=== PATIENT | female | born 1955 | race Caucasian/White ===

== ENCOUNTER 2019-05-21 21:33 | Emergency (ER) | payer MEDICARE, MEDICAID ==
[~2019-05-21] VITALS: Ht 162.6 cm; Wt 99.3 kg
[~2019-05-21 21:33] MED LIST: ARIP15TA3 PO; ATOR40TA PO; BUPR-96 PO; DULO60CA64 PO; HYDR200T4 PO; METF-440 PO; OXYB5TAB11 PO; SULF500T8 PO; TRAZ-214 PO
--- NOTE | 2019-05-21 21:45 | NUR ---
BIBA W/ C/O RLQ ABD PAIN SINCE 1499. +N/V. LBM: TODAY. NORMAL BM. - DIARRHEA. VSS
--- NOTE | 2019-05-21 21:51 | NUR ---
PIV 18G STARTED ON LAC. BLOOD DRAWN AND SENT TO THE LAB. PT UNABLE TO PROVIDE URINE SAMPLE AT THIS TIME.
[2019-05-21 21:52] LABS: BASOPHILS # (AUTO) 0.1 /CMM (0.0-0.2); EOSINOPHILS % (AUTO) 3.1 % (0.0-6.0); HEMATOCRIT 30 % (33-45); HEMOGLOBIN 9.7 g/dL (11.5-14.8); LYMPHOCYTES # (AUTO) 1.8 /CMM (0.8-4.8); LYMPHOCYTES % (AUTO) 30.9 % (20.0-44.0); MEAN CORPUSCULAR HGB CONC 32 g/dl (31.0-36.0); MEAN CORPUSCULAR VOLUME 88 fL (82-100); MONOCYTES # (AUTO) 0.5 /CMM (0.1-1.30); MONOCYTES % (AUTO) 9.2 % (2.0-12.0); NEUTROPHILS # (AUTO) 3.2 /CMM (1.8-8.9); NEUTROPHILS % (AUTO) 55.8 % (43.0-81.0); PLATELET COUNT (AUTO) 224 /CMM (150-450); WHITE BLOOD COUNT (AUTO) 5.7 K/uL (4.3-11.0)
[2019-05-21 22:11] LABS: POTASSIUM 4.1 mmol/L (3.5-5.1)
[2019-05-21 22:17] LABS: ALBUMIN 3.6 g/dL (3.4-5.0); BILIRUBIN,DIRECT 0.1 mg/dL (0.0-0.2); BILIRUBIN,TOTAL 0.3 mg/dL (0.2-1.0); TOTAL PROTEIN, SERUM 6.4 g/dL (6.4-8.2)
--- NOTE | 2019-05-21 22:51 | NUR ---
PICKED UP FOR CT SCAN
[2019-05-21] MEDS ORDERED: KETOROLAC TROMETHAMINE INJ 30 MG/ML VIAL ONE (22:53)
[2019-05-21] MEDS ORDERED: KETOROLAC TROMETHAMINE INJ 30 MG/ML VIAL IV ONE (23:00)
[2019-05-22 00:01] LABS: APPEARANCE,URINE Clear (CLEAR); BILIRUBIN,URINE SMALL (NEGATIVE); BLOOD, URINE Negative Ery/uL (NEGATIVE); COLOR,URINE Yellow (YELLOW); KETONES,URINE Trace (NEGATIVE); LEUKOCYTE ESTERASE ,URINE Negative (NEGATIVE); NITRITE, URINE Negative (NEGATIVE); PH,URINE 5.5 (5.0-8.0); PROTEIN,URINE Negative (NEGATIVE); UGLUCOSE Negative (NEGATIVE); UROBILINOGEN,URINE 0.2 EU/dL (0.2)
[2019-05-22 00:25] LABS: BACTERIA,URINE Few /HPF (None Seen); SQUAMOUS EPITHELIAL CELL,UR Few /HPF (None Seen)
--- NOTE | 2019-05-22 00:38 | NUR ---
CALLED [facility] FOR TRANSPORT. 30-40 MINUTE ETA 0115. TRIP #[id number].
--- NOTE | 2019-05-22 01:01 | NUR ---
CALLED [facility] AND SPOKE TO JUDITH REGARDING PT'S D/C STATUS
--- NOTE | 2019-05-22 01:33 | NUR ---
pt was picked up by radha via gurney in stable condition and transferred to four season AR, IV removed. Catheter intact and site benign. Pressure and 4x4 applied to site. No bleeding noted.Patient discharged to [place] in stable condition. Rx and Written and verbal after care instructions given. Patient verbalizes understanding of instruction. report given to hogshead mat assembler
[2019-05-22 01:44] VITALS: BP 141/75
== END 2019-05-22 01:33 | disposition home or self-care (01) ==
LOC: ER 21:35
DX: R10.31 Right lower quadrant pain (principal); M32.9 Systemic lupus erythematosus, unspecified; M79.7 Fibromyalgia; M06.88 Other specified rheumatoid arthritis, vertebrae; E78.5 Hyperlipidemia, unspecified; E11.9 Type 2 diabetes mellitus without complications; G89.29 Other chronic pain; M54.5 Low back pain; I10 Essential (primary) hypertension; F41.9 Anxiety disorder, unspecified; F32.9 Major depressive disorder, single episode, unspecified; E66.9 Obesity, unspecified; Z98.890 Other specified postprocedural states; Z68.37 Body mass index [BMI] 37.0-37.9, adult
CPT/HCPCS: 36415; 51702; 74176; 80048; 80076; 81001; 83690; 85025; 96374; 99284; J1885; 81000-TC

== ENCOUNTER 2019-09-16 20:33 | Emergency (ER) | payer MEDICARE, OTHER, MEDICAID ==
[~2019-09-16] VITALS: Ht 162.6 cm; Wt 99.8 kg
[~2019-09-16 20:33] MED LIST changes: -OXYB5TAB11 PO; +OXYB5TAB16 PO; -TRAZ-214 PO; +TRAZ-257 PO
[2019-09-16 20:51] LABS: BASOPHILS % (AUTO) 0.7 % (0.0-2.0); EOSINOPHILS % (AUTO) 3.6 % (0.0-6.0); HEMATOCRIT 34 % (33-45); HEMOGLOBIN 11.1 g/dL (11.5-14.8); LYMPHOCYTES # (AUTO) 1.7 /CMM (0.8-4.8); LYMPHOCYTES % (AUTO) 29.7 % (20.0-44.0); MEAN CORPUSCULAR HGB CONC 33 g/dl (31.0-36.0); MEAN CORPUSCULAR VOLUME 95 fL (82-100); MONOCYTES # (AUTO) 0.6 /CMM (0.1-1.30); MONOCYTES % (AUTO) 10.1 % (2.0-12.0); NEUTROPHILS # (AUTO) 3.1 /CMM (1.8-8.9); NEUTROPHILS % (AUTO) 55.9 % (43.0-81.0); PLATELET COUNT (AUTO) 186 /CMM (150-450); RED BLOOD CELL COUNT(AUTO) 3.56 MIL/uL (4.0-5.2); WHITE BLOOD COUNT (AUTO) 5.6 K/uL (4.3-11.0)
[2019-09-16 21:00] LABS: CALCIUM, SERUM 9.4 mg/dL (8.5-10.1); CREATININE 1.1 mg/dL (0.6-1.3); POTASSIUM 4.1 mmol/L (3.5-5.1)
--- NOTE | 2019-09-16 21:00 | NUR ---
URINE SAMPLE COLLECTED AND SENT TO LAB.
[2019-09-16 21:30] LABS: APPEARANCE,URINE Slightly Cloudy (CLEAR); BILIRUBIN,URINE SMALL (NEGATIVE); BLOOD, URINE Negative Ery/uL (NEGATIVE); COLOR,URINE Dark (YELLOW); KETONES,URINE Trace (NEGATIVE); LEUKOCYTE ESTERASE ,URINE Negative (NEGATIVE); NITRITE, URINE Negative (NEGATIVE); PROTEIN,URINE Negative (NEGATIVE); UGLUCOSE Negative (NEGATIVE); UROBILINOGEN,URINE 0.2 EU/dL (0.2)
[2019-09-16 21:40] LABS: BACTERIA,URINE Many /HPF (None Seen); MUCUS,URINE Many /LPF (None Seen); RBC,URINE 0-2 /HPF (0-2); SQUAMOUS EPITHELIAL CELL,UR Few /HPF (None Seen); WBC,URINE 0-2 /HPF (0-3)
--- NOTE | 2019-09-16 21:44 | NUR ---
KASIE PANDEY ETA [id number] TRIP#[id number]
--- NOTE | 2019-09-16 23:10 | NUR ---
PT NOTED W/ A HIGH HR OF 115-120 UPON DISCHARGE WHILE THE TRANSPORTATION AT THE BED SIDE TO PICK HER UP. DR MONGE MADE AWARE W/ A NORDER FOR AN STAT EKG AND HOLD THE D/C.
--- NOTE | 2019-09-16 23:10 | NUR ---
KASIE PLACED ON WILL CALL
--- NOTE | 2019-09-16 23:20 | NUR ---
[facility] ETA 0106
--- NOTE | 2019-09-17 00:59 | NUR ---
PT IS SITTING IN BED COMFORTABLY. NO DISTRESS. HAVING SOME JUICE AND SNACKS. F/C IN PLACE DRAINING CLAR YELLOW URINE. VSS. HR: 89. WILL CONT TO MONITOR,
--- NOTE | 2019-09-17 01:20 | NUR ---
Patient discharged to home in stable condition. Written and verbal after care instructions given. Patient verbalizes understanding of instruction. pt was picked up by [facility] in stable condition. all belongings picked up.
[2019-09-17 01:32] VITALS: BP 109/73
== END 2019-09-17 01:33 | disposition home or self-care (01) ==
LOC: ER 20:40
DX: R33.9 Retention of urine, unspecified (principal); R00.0 Tachycardia, unspecified; E11.9 Type 2 diabetes mellitus without complications; M54.9 Dorsalgia, unspecified; Z79.899 Other long term (current) drug therapy
CPT/HCPCS: 36415; 80048-TC; 81000-TC; 85025-TC; 87086-TC

== ENCOUNTER 2021-10-25 19:39 | Emergency (ER) | payer MEDICARE, OTHER ==
[~2021-10-25] VITALS: Ht 160 cm; Wt 99.8 kg
--- NOTE | 2021-10-25 19:55 | NUR ---
BIBS. FEELING OVERWHELMED,FEELS HURTING HERSELF SEEKING VOLUNTARY ADMISSION. PATIENT ALERT AND ORIENTED X3. AMBULATORY WITH NON LABORED BREATHING.
[2021-10-25 20:40] LABS: BASOPHILS % (AUTO) 0.6 % (0.0-2.0); EOSINOPHILS % (AUTO) 1.1 % (0.0-6.0); HEMATOCRIT 38 % (33-45); HEMOGLOBIN 12.8 g/dL (11.5-14.8); LYMPHOCYTES # (AUTO) 1.6 K/uL (0.8-4.8); LYMPHOCYTES % (AUTO) 19.4 % (20.0-44.0); MEAN CORPUSCULAR HGB CONC 33 g/dl (31.0-36.0); MEAN CORPUSCULAR VOLUME 102 fL (82-100); MONOCYTES # (AUTO) 0.6 K/uL (0.1-1.30); MONOCYTES % (AUTO) 7.3 % (2.0-12.0); NEUTROPHILS # (AUTO) 5.8 K/uL (1.8-8.9); NEUTROPHILS % (AUTO) 71.6 % (43.0-81.0); PLATELET COUNT (AUTO) 240 K/uL (150-450); RED BLOOD CELL COUNT(AUTO) 3.75 MIL/uL (4.0-5.2)
[2021-10-25 20:56] LABS: ALBUMIN 4.2 g/dL (3.4-5.0); BILIRUBIN,DIRECT 0.2 mg/dL (0.0-0.2); BILIRUBIN,TOTAL 0.8 mg/dL (0.2-1.0); CALCIUM, SERUM 9.8 mg/dL (8.5-10.1); CREATININE 1.5 mg/dL (0.6-1.3); POTASSIUM 3.9 mmol/L (3.5-5.1); TOTAL PROTEIN, SERUM 7.7 g/dL (6.4-8.2)
[2021-10-25 21:01] LABS: BILIRUBIN,URINE SMALL (NEGATIVE); COLOR,URINE YELLOW (YELLOW); LEUKOCYTE ESTERASE ,URINE TRACE (NEGATIVE); NITRITE, URINE NEGATIVE (NEGATIVE); PROTEIN,URINE NEGATIVE (NEGATIVE); UGLUCOSE NEGATIVE (NEGATIVE); UROBILINOGEN,URINE 0.2 EU/dL (0.2)
[2021-10-25 21:08] LABS: EOSINOPHILS % (MANUAL) 1 % (0-4); LYMPHOCYTES % (MANUAL) 27 % (16-48); MONOCYTES % (MANUAL) 4 % (0-11.0); NEUTROPHILS % (MANUAL) 68 (42-76)
[2021-10-25 21:10] LABS: BACTERIA,URINE RARE /HPF (None Seen); RBC,URINE 0-2 /HPF (0-2)
[2021-10-25 21:11] LABS: MUCUS,URINE Few /LPF (None Seen)
--- NOTE | 2021-10-25 22:35 | NUR ---
COVID SWAB DONE AND SENT TO LAB
--- NOTE | 2021-10-26 02:18 | NUR ---
CLINICALS FAXED TO [facility]TA[facility]
[2021-10-26 04:34] VITALS: BP 121/70
--- NOTE | 2021-10-26 04:50 | NUR ---
[facility] ETA 1 HR
--- NOTE | 2021-10-26 04:52 | NUR ---
SPOKE WITH LAURO AT [facility] TO GIVE REPORT. CHARGE NURSE IS NOT AROUND AND WILL CALL BACK
--- NOTE | 2021-10-26 04:52 | NUR ---
Namrata bingham in ED - 10/26/21 at 0500 by EMILY SPOKE WITH LAURO AT [facility] TO GIVE REPORT. CHARGE NURSE IS NOT AROUND AND WILL CALL BACK
--- NOTE | 2021-10-26 05:39 | NUR ---
REPORT GIVEN TO MILADIS SPENCER FOR [place] AT THE [facility].
--- NOTE | 2021-10-26 06:11 | NUR ---
[facility] # [phone] AT BEDSIDE FOR PT TRANSPROT TO [facility]. REPORT GIVEN. PT IS IN STABLE CONDITION. AMBULATORY ON STEADY GAIT
== END 2021-10-26 07:30 ==
LOC: ER 19:51
DX: R45.851 Suicidal ideations (principal); Z59.00 Homelessness unspecified; F32.A Depression, unspecified; M79.7 Fibromyalgia; R00.0 Tachycardia, unspecified; M06.9 Rheumatoid arthritis, unspecified; M32.9 Systemic lupus erythematosus, unspecified; E11.9 Type 2 diabetes mellitus without complications; Z79.84 Long term (current) use of oral hypoglycemic drugs; Z79.899 Other long term (current) drug therapy; Z20.822 Contact with and (suspected) exposure to COVID-19
CPT/HCPCS: 36415; 80048-TC; 80076-TC; 81001; 84484-TC; 85025-TC; C9803; G0480